=== PATIENT | female | born 1975 | race African-American/Black ===

== ENCOUNTER 2017-06-07 08:00 | Day surgery (SDC) | payer OTHER ==
--- NOTE | 2017-06-06 16:52 | History and Physical Report ---
History of Present Illness Date of examination: 06/06/17 History of present illness: Patient has been reassessed/reevaluated/re-examined. H&P has been reviewed. No interval changes. This is a 41 years old female patient of Dr Chi Johnson who presents with menstrual disorder. The symptoms began 4-6 months ago. She complains of irregular menses, heavy bleeding, dysmenorrhea, clotting, fatigue and cramping, but denies mid-cycle spotting, lack of menses, history of ovarian cysts, history of thyroid disease, history of PCOS, history of bleeding disorder and lightheadedness. Hormonal therapies have failed to solve her. Patient desires definitive treatment . Patient's symptoms when present disrupts her normal daily activities Patient's work up has included a transvaginal ultrasound which revealed an intracavity uterine mass Vital Signs: Patient Profile: 41 Years Old Female Height: 61 inches (154.94 cm) Weight: 145 pounds (65.91 kg) BMI: 27.39 BSA: 1.65 Current Method of Contraception: None Past History : 4 Term Births: 3 Premature Births: 0 Living Children: 3 Para: 3 Aborta: 1 Elect. Ab: 1 Spont. Ab: 0 Ectopics: 0 INFORMATION SERVICES VICE PRESIDENT History Operations: Tubal Ligation 1999 abdominoplast 2014 sinus surgery Abnormal PAP: negative Infection History HIV Risk Eval: no Current Allergies (reviewed today): No known allergies Past Medical History: headacches seizures Hypothyroidism Past Surgical History: Tubal Ligation 1999 abdominoplast 2015 sinus surgery Social History: Patient is sex no issues Smoking History: Patient has never smoked. Risk Factors: Smoked Tobacco Use: Never smoker Smokeless Tobacco Use: Never Passive smoke exposure: no Drug use: no HIV high-risk behavior: no Exercise: no Seatbelt use: 100 % Review of Systems General Complains of fatigue. Denies fever, chills, sweats, anorexia, weakness, malaise, weight loss and sleep disorder. Complains of menorrhagia, abnormal vaginal bleeding and pelvic pain. Denies vaginal discharge, incontinence, dysuria, hematuria, urinary frequency, amenorrhea, genital sores, decreased libido, painful periods, painful sex, urinary urgency, hot flashes, vaginal dryness, vaginal itching and vaginal odor. CV Denies chest pains, palpitations, syncope, dyspnea on exertion, orthopnea, PND and peripheral edema. Resp Denies cough, dyspnea at rest, excessive sputum, hemoptysis, wheezing and pleurisy. GI Denies nausea, vomiting, diarrhea, constipation, change in bowel habits, abdominal pain, melena, hematochezia, jaundice, gas/bloating, indigestion/ heartburn, dysphagia and odynophagia. Breast Denies left breast lump, right breast lump, nipple discharge, bloody discharge from nipple, breast pain, abnormal mammogram and breast enlargement. Psych Denies depression, anxiety, irritability and mood swings. Patient has been reassessed/reevaluated/re-examined. H&P has been reviewed. No interval changes. Medications and Allergies Allergies Allergy/AdvReac Type Severity Reaction Status Date / Time cucumber Allergy Itching Verified 06/06/17 12:39 seafood Allergy Swelling Uncoded 06/06/17 12:39 Home Medications Medication Instructions Recorded Confirmed Last Taken Type Levothyroxine [Synthroid] 75 mcg PO QAM 06/07/17 06/07/17 06/07/17 History Topiramate [Topamax TAB] 50 mg PO BID 06/07/17 06/07/17 06/07/17 History levETIRAcetam [Keppra TAB] 500 mg PO BID 06/07/17 06/07/17 06/07/17 History Exam - Physical Exam Narrative exam: HEENT: normocephalic, no lesions or deformities Skin no ulcers, xanthomas Chest: respiratory effort normal, clear to auscultation Breasts: no masses or nipple discharge CV: regular, normal S1-S2, no murmur, no rub, no gallop Abdomen: soft, non-tender, no masses, bowel sounds normal Musculoskeletal: grossly normal ROM in joints, no joint tenderness or muscle weakness Neuro: no gross anomalities Extremities: normal alignment, no joint enlargement, crepitus, masses or tenderness; 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 No evidence of cystocele or rectocele. Cervix: normal appearance, no lesions, no discharge, bleeding Uterus: normal position, midline, mobile Adnexae: no masses or tenderness Rectovaginal: exam defered Results - Labs CBC & Chem 7: 06/07/17 09:10 06/07/17 09:10 Assessment and Plan - Patient Problems (1) Pelvic mass Current Visit: Yes Status: Acute Plan to address problem: Discussed ultrasound findings Possible etiology of abnormal bleeding Images consistent with a submucosal myoma (2) Submucous leiomyoma of uterus Current Visit: Yes Status: Acute Plan to address problem: Diagnosis explained to patient . Questions answered. Medical and surgical treatment options discussed Patient desires myosure (3) Menometrorrhagia Current Visit: Yes Status: Acute Plan to address problem: Probably secondary to # 2 Diagnosis explained to patient . Questions answered. Hormonal therapies have failed to solve her. Patient desires definitive treatment . Patient's symptoms when present disrupts her normal daily activities Patient desires operative hysteroscopy. Discussed risk of surgery including infection, bleeding and risk of perforating her uterus. Questions answered. Patient understands and desires to proceed (4) Hypothyroidism Current Visit: Yes Status: Chronic Qualifiers: Hypothyroidism type: unspecified Qualified Code(s): E03.9 - Hypothyroidism , unspecified (5) Seizure Current Visit: No Status: Acute
[~2017-06-07 08:00] MED LIST: PEPCID PO NR; VERSED IV NR
[2017-06-07] MEDS ORDERED: DIPRIVAN 10 MG/ML IV ONE (09:11)
--- NOTE | 2017-06-07 09:11 | Anesthesia Consultation ---
Anesthesia Consult and Med Hx Date of service: 06/07/17 - Airway Anesthetic Teeth Evaluation: Good, Crowns (lower left) ROM Head & Neck: Adequate Mental/Hyoid Distance: Adequate Mallampati Class: Class II Intubation Access Assessment: Probably Good - Pulmonary Exam CTA: Yes - Cardiac Exam Cardiac Exam: RRR - Pre-Operative Health Status ASA Pre-Surgery Classification: ASA2 Proposed Anesthetic Plan: General - Central Nervous System Hx Seizures: Yes (last seizure in January, epilepsy. On meds) Hx Psychiatric Problems: No - Gastrointestinal Hx Gastroesophageal Reflux Disease: Yes (Heart burn) - Endocrine Hx Hypothyroidism: Yes - Other Systems Hx Alcohol Use: Yes (occas) Hx Cancer: No - Additional Comments Anesthesia Medical History Comments: sister helped translate, georgian but minimal. Sister states she has a poor memory.
[2017-06-07] MEDS ORDERED: DECADRON ONE ×2 (09:12→11:53)
[2017-06-07] MEDS ORDERED: ZOFRAN ONE ×2 (09:12→11:54)
[2017-06-07] MEDS ORDERED: XYLOCAINE MPF 2% ONE (09:12)
--- NOTE | 2017-06-07 09:12 | Anesthesia Day of Surgery ---
Anesthesia Day of Surgery - Day of Surgery Patient Examined: Yes Patient H&P Reviewed: Yes Patient is NPO: Yes
[2017-06-07] MEDS: LACTATED RINGERS 1,000 ML IV SCH ×2 (09:13→13:09)
[2017-06-07 09:41] LABS: Basophils % (Auto) 0.4 % (0.0-1.8); Eosinophils % (Auto) 2.8 % (0.0-4.3); Hematocrit 32.2 % (30.3-42.9); Hemoglobin 10.6 gm/dl (10.1-14.3); Mean Corpuscular HGB Conc 33 % (30-34); Mean Corpuscular Hemoglobin 34 pg (28-32); Mean Corpuscular Volume 102 fl (79-97); Platelet Count 159 K/mm3 (140-440); Red Blood Count 3.17 M/mm3 (3.65-5.03); Red Cell Distribution Width 12.3 % (13.2-15.2); White Blood Count 5.5 K/mm3 (4.5-11.0)
[2017-06-07] MEDS ORDERED: DILAUDID ONE (09:41)
[2017-06-07 09:58] LABS: Anion Gap 12 mmol/L; BUN/Creatinine Ratio 18.88; Blood Urea Nitrogen 17 mg/dL (7-17); Calcium 7.8 mg/dL (8.4-10.2); Carbon Dioxide 22 mmol/L (22-30); Chloride 108.3 mmol/L (98-107); Glucose 97 mg/dL (65-100); Potassium 4.3 mmol/L (3.6-5.0); Sodium 138 mmol/L (137-145)
[2017-06-07] MEDS ORDERED: PEPCID PO NR (10:00)
[2017-06-07] MEDS ORDERED: NACL 0.9% IR ONE (11:58)
--- NOTE | 2017-06-07 12:36 | Operative Report ---
Operative Report Operative Report: Date of procedure: 06/07/2017 Pre-operative diagnosis: Menometrorrhagia with intracavitary uterine mass consistent with submucosal myoma Post-operative diagnosis: Same Procedure name(s): Operative hysteroscopy with MyoSure Surgeon: Naveen Lal MD Air Conditioning Installer: [] Anesthesia: Gen. EBL: Minimal Complications: None Findings: Patient with thickened endometrial lining with some thickened endometrial mass also polyp removed with polyp forceps. Specimen(s): Uterine mass Procedure: Patient was brought into the operating room, where general anesthesia was induced without any difficulty. Patient was placed in dorsal lithotomy position. Prep and drape in the usual sterile manner. Timeout procedure was performed. The patient's bladder was emptied with a red rubber catheter. Speculum was placed in the vagina. Tenaculum was placed at 12:00 on the cervix. The cervical os was dilated to a 19 Green[place]ic diameter. The hysteroscope was placed and the findings noted above. The MyoSure device was primed. The device was placed through the cervical os. The mass was then removed using the MyoSure. The mass was completely removed with no evidence of puncture on the uterine wall. Curettage was done with a banjo curet until a gritty sensation was felt throughout the uterine cavity was small amount of tissue removed. All instruments were then removed. The patient was awakened in the operating room and accompanied to recovery room in good condition.
--- NOTE | 2017-06-07 12:38 | Short Stay Summary ---
Short Stay Documentation Date of service: 06/07/17 - History H&P: dictated - Allergies and Medications Current Medications: Allergies cucumber Allergy (Verified 06/06/17 12:39) Itching seafood Allergy (Uncoded 06/06/17 12:39) Swelling Home Medications Medication Instructions Recorded Confirmed Last Taken Type Doxycycline [Vibramycin CAP] 100 mg PO Q12HR #14 capsule 06/07/17 Unknown Rx Ferrous Sulfate [Feosol 325 MG tab] 325 mg PO BID #60 tablet 06/07/17 Unknown Rx Ibuprofen [Motrin 800 MG tab] 800 mg PO Q6H PRN #30 tablet 06/07/17 Unknown Rx Levothyroxine [Synthroid] 75 mcg PO QAM 06/07/17 06/07/17 06/07/17 History Topiramate [Topamax TAB] 50 mg PO BID 06/07/17 06/07/17 06/07/17 History levETIRAcetam [Keppra TAB] 500 mg PO BID 06/07/17 06/07/17 06/07/17 History oxyCODONE /ACETAMINOPHEN [Percocet 1 - 2 tab PO Q4H PRN #30 tablet 06/07/17 Unknown Rx 5/325 mg] Active Medications Lactated Ringer's (Lactated Ringers) 1,000 mls @ 100 mls/hr IV DIRECT FREDDIE Last Admin: 06/07/17 09:13 Dose: 100 mls/hr Midazolam HCl (Versed) 2 mg IV PREOP NR Stop: 06/07/17 23:59 Last Admin: 06/07/17 10:10 Dose: 2 mg - Brief post op/procedure progress note Date of procedure: 06/07/17 (see dictated op note) - Hospital course Hospital course: Patient was admitted underwent the above him procedure without any complications. Patient will be discharged with follow-up in office in 1-2 weeks for postop check. - Disposition Condition at discharge: Good Disposition: [id number] TO HOME OR SELFCARE - Discharge Diagnoses (1) Pelvic mass Status: Acute (2) Submucous leiomyoma of uterus Status: Acute (3) Menometrorrhagia Status: Acute (4) Hypothyroidism Status: Chronic Qualifiers: Hypothyroidism type: unspecified Qualified Code(s): E03.9 - Hypothyroidism , unspecified (5) Seizure Status: Chronic Short Stay Discharge Plan Activity: advance as tolerated Additional Instructions: She called office for any fever chills nausea vomiting excessive bleeding no pain not controlled by pain medicine Follow up with: PRIMARY CARE,MD [Primary Care Provider] - 7 Days Prescriptions: Ferrous Sulfate [Feosol 325 MG tab] 325 mg PO BID #60 tablet Ibuprofen [Motrin 800 MG tab] 800 mg PO Q6H PRN #30 tablet PRN Reason: Pain oxyCODONE /ACETAMINOPHEN [Percocet 5/325 mg] 1 - 2 tab PO Q4H PRN #30 tablet PRN Reason: Pain, Moderate Doxycycline [Vibramycin CAP] 100 mg PO Q12HR #14 capsule
[2017-06-07] MEDS ORDERED: ZOFRAN IV PRN (12:50)
[2017-06-07] MEDS ORDERED: TORADOL IV PRN (12:50)
[2017-06-07] MEDS: DILAUDID IV PRN ×2 (12:55→13:05)
[2017-06-07] MEDS ORDERED: PERCOCET 5/325 PO ONE (14:01)
[2017-06-07 14:30] VITALS: BP 117/75
== END 2017-06-07 14:25 | disposition home or self-care (01) ==
LOC: OR 08:00
PROVIDERS: ATTEND Obstetrics & Gynecology
DX: N85.8 Other specified noninflammatory disorders of uterus (principal); G40.909 Epilepsy, unspecified, not intractable, without status epilepticus; K21.9 Gastro-esophageal reflux disease without esophagitis; E03.9 Hypothyroidism, unspecified; Z72.89 Other problems related to lifestyle; Z79.899 Other long term (current) drug therapy; Z91.013 Allergy to seafood; Z91.018 Allergy to other foods; Z98.51 Tubal ligation status; Z98.890 Other specified postprocedural states
CPT/HCPCS: 36415; 58558; 80048; 81025; 85025; 86850; 86900; 86901; 88305; A4217; C1782; J1100; J1170; J1885; J2250; J2405; J2704; J7120